=== PATIENT | male | born 1970 | race Caucasian/White ===

== ENCOUNTER 2021-12-23 11:12 | Day surgery (SDC) | payer MEDICAID, OTHER ==
[2021-12-23] MEDS ORDERED: Ondansetron 4 MG/2 ML SDV IVPUSH ONE (11:13)
[2021-12-23] MEDS ORDERED: Propofol 200 MG/20 ML SDV IV ONE (11:13)
[2021-12-23] MEDS ORDERED: Glycopyrrolate 0.2 MG/ML 5 ML MDV IV ONE (11:13)
[2021-12-23] MEDS ORDERED: Midazolam 1 MG/ML 2 ML SDV IV ONE (11:13)
[2021-12-23] MEDS ORDERED: Rocuronium 100 MG/10 ML MDV IV ONE (11:13)
[2021-12-23] MEDS ORDERED: HYDROmorphone 2 MG/ML SDV IV ONE (11:13)
[2021-12-23] MEDS ORDERED: Lactated Ringers 1,000 ML IV ONE (11:13)
[2021-12-23] MEDS ORDERED: Neostigmine Methylsulfate 10 MG/10 ML MDV IVPUSH ONE (11:13)
[2021-12-23] MEDS ORDERED: fentaNYL 100 MCG/2 ML SDV IV ONE (11:13)
[2021-12-23] MEDS ORDERED: Succinylcholine 200 MG/10 ML MDV IV ONE (11:13)
[2021-12-23] MEDS ORDERED: Dexamethasone 4 MG/ML 5 ML MDV IVPUSH ONE (11:13)
[2021-12-23] MEDS ORDERED: Ketorolac 30 MG/ML SDV IVPUSH ONE (11:13)
[2021-12-23] MEDS ORDERED: Dexmedetomidine 200 MCG/2 ML SDV IV ONE (11:13)
[2021-12-23] MEDS ORDERED: Lactated Ringers 1,000 ML IV SCH (12:30)
[2021-12-23] MEDS ORDERED: Sodium Chloride 0.9% 10 ML Syringe FLUSH PRN (12:30)
[2021-12-23] MEDS ORDERED: Bupivacaine 0.5%/EPINEPHrine 1:200,000 10 ML SDV INJECT ONE (13:05)
[2021-12-23] MEDS ORDERED: Acetaminophen/HYDROcodone 325-5 MG Tab PO ONE (15:51)
== END 2021-12-23 17:15 | disposition home or self-care (01) ==
LOC: FB.SDS 11:12
PROVIDERS: ATTEND Surgery
DX: K80.10 Calculus of gallbladder with chronic cholecystitis without obstruction (principal); E11.9 Type 2 diabetes mellitus without complications; Z79.4 Long term (current) use of insulin; Z88.8 Allergy status to other drugs, medicaments and biological substances; Z01.812 Encounter for preprocedural laboratory examination; Z20.822 Contact with and (suspected) exposure to COVID-19
CPT/HCPCS: 00790-QZ; 82947; 88304; 94150; A9270-GY; J0330; J0690; J1100; J1170; J1885; J2250; J2405; J2704; J2710; J3010; J3490; J7120; U0002